=== PATIENT | male | born 2000 | race Hispanic/Latino ===

== ENCOUNTER 2024-06-14 13:34 | Emergency (ER) | payer OTHER ==
[2024-06-14] MEDS ORDERED: Cyclobenzaprine 10 MG TAB ONE (15:04)
[2024-06-14] MEDS ORDERED: Naproxen 500 MG TAB ONE (15:05)
== END 2024-06-14 15:31 | disposition home or self-care (01) ==
LOC: CSHERS 13:34
DX: M54.2 Cervicalgia (principal); M25.561 Pain in right knee; V48.0XXA Car driver injured in noncollision transport accident in nontraffic accident, initial encounter
CPT/HCPCS: 99283